=== PATIENT | male | born 1980 | race Caucasian/White ===

== ENCOUNTER 2017-07-25 10:19 | Emergency (ER) | payer SELFPAY ==
[2017-07-25 10:36] VITALS: BP 150/98; PULSE 108; RESP 16; TEMP 37.6; O2SAT 96; BMI 27.1
--- NOTE | 2017-07-25 10:48 | XR_ITS ---
XR chest 2V HISTORY: Cough and congestion ITS.REASON: R/O pneumonia ORDERING PHYSICIAN: Claudy Mack MD PATIENT AGE: 37 years COMPARISON: None available FINDINGS: The cardiomediastinal silhouette and pulmonary vascularity are within normal limits. The lungs are clear without infiltrates, suspicious nodules, or pleural effusions. Lumbar scoliosis convex left No acute bony abnormalities. IMPRESSION: No acute finding
--- NOTE | 2017-07-25 12:44 | HMH.EDURI ---
ED Disposition Clinical Impression: URI (upper respiratory infection) Upper respiratory infection Qualifiers: URI type: unspecified URI Qualified Code(s): J06.9 - Acute upper respiratory infection, unspecified Disposition: Home, Self-Care Condition on Discharge: Good Instructions: DI for Acute Bronchitis Additional Instructions: * Monitor Temp. Tylenol and/or Ibuprofen as needed. ER if fever is no less than 101 despite alternating Tylenol and Ibuprofen * Encourage fluids, water, Gatorade, powerade, pedialyte if /toddler/or child * Warm salt water gargles for throat irritation *Warm fluids *Sore throat lozenges *Sleep elevated *humidifier or vaporizer Lots of rest Increase fluids, water, Gatorade, powerade Take medication as prescribed If symptoms persist follow up with family doctor Return if needed Follow up IMMEDIATELY for new or worsening of symptoms OR no noticeable improvement over the next 48-72 hours. 911 immediately for any life threatening symptoms such as chest pain or difficulty breathing Prescriptions: Albuterol Sulfate [Albuterol HFA Inhaler] 2 puffs IH Q6HP PRN #1 inh PRN Reason: Shortness Of Breath Or Wheezing Ibuprofen [Ibuprofen 800mg Tab] 800 mg PO Q6HP PRN #20 tab PRN Reason: Moderate Pain Azithromycin [Z-Rudy 250mg Tab] 250 mg PO UD DOSE PK #6 tab Benzonatate [Tessalon Perle 100mg Cap] 100 mg PO TID #30 cap predniSONE [Prednisone 20mg Tab] 20 mg PO BID #10 tab Referrals: Maximiliano Diaz MD [Primary Care Provider] - Time of Disposition: 13:14 - Critical Care Critical Care Time: No (Upper respiratory infection non-urgent) Attestation: On 07/25/17, the high probability of a clinically significant, sudden or life threatening deterioration of the following system(s) required my full and direct attention, intervention and personal management. The time I documented below is in addition to time spent performing reported procedures but includes the following listed in this critical care notation. Medical Decision Making - Medical Records Medical records reviewed: Yes: I reviewed the patient's medical records. Vital Signs: 07/25/17 10:36 Temperature 99.6 F Temperature Source Oral Pulse Rate [Left Radial] 108 H Respiratory Rate 16 Blood Pressure [Left Arm] 150/98 Blood Pressure Mean [Left Arm] 115 Blood Pressure Source [Left Arm] Automatic Cuff Blood Pressure Position [Left Arm] Sitting 02 Sat by Pulse Oximetry 96 Oxygen Delivery Method Room Air - Radiology Data #1 Image(s): Chest Image Reviewed: Yes I have reviewed radiologist's interpretation Preliminary Findings: No Infiltrates Seen (Lungs clear without infiltrates, suspicious nodules or pleural effusion, Lumbar scoliosis convex left No acute finding per Dr Hagan official reading) - Giovani Inquiry Pt receiving controlled substance: No Giovani was queried for this patient: No - Reevaluation(s) Time: 13:07 Reevaluation #1: Influenza test, negative result, patient educated on symptoms associated with flu, no distress walking around room URI/Sore Throat HPI - General Chief Complaint: Upper Respiratory Infection Stated Complaint: cough,left side pain Time Seen by Provider: 07/25/17 12:44 Mode of Arrival: Ambulatory Limitations: No Limitations - History of Present Illness HPI Narrative: Patient state that he has been having a cough now for several days that has continued to get worse.State that when he has an episode of coughing he is having pain in left side area like he may have pulled something in his left ribs State that pain is worse when he coughs State that he has been having a low grade fever since yesterday along with throat irritation and sinus drainage - Related Data Previous Rx's Medication Instructions Recorded Albuterol Sulfate [Albuterol HFA 2 puffs IH Q6HP PRN #1 inh 07/25/17 Inhaler] Azithromycin [Z-Rudy 250mg Tab] 250 mg PO UD DOSE PK #6 tab 07/25/17 Benzonatate [Tessalon
--- NOTE | 2017-07-25 12:47 | ED_ITS ---
ED Disposition Clinical Impression: URI (upper respiratory infection) Upper respiratory infection Qualifiers: URI type: unspecified URI Qualified Code(s): J06.9 - Acute upper respiratory infection, unspecified Disposition: Home, Self-Care Condition on Discharge: Good Instructions: DI for Acute Bronchitis Additional Instructions: * Monitor Temp. Tylenol and/or Ibuprofen as needed. ER if fever is no less than 101 despite alternating Tylenol and Ibuprofen * Encourage fluids, water, Gatorade, powerade, pedialyte if /toddler/or child * Warm salt water gargles for throat irritation *Warm fluids *Sore throat lozenges *Sleep elevated *humidifier or vaporizer Lots of rest Increase fluids, water, Gatorade, powerade Take medication as prescribed If symptoms persist follow up with family doctor Return if needed Follow up IMMEDIATELY for new or worsening of symptoms OR no noticeable improvement over the next 48-72 hours. 911 immediately for any life threatening symptoms such as chest pain or difficulty breathing Prescriptions: Albuterol Sulfate [Albuterol HFA Inhaler] 2 puffs IH Q6HP PRN #1 inh PRN Reason: Shortness Of Breath Or Wheezing Ibuprofen [Ibuprofen 800mg Tab] 800 mg PO Q6HP PRN #20 tab PRN Reason: Moderate Pain Azithromycin [Z-Rudy 250mg Tab] 250 mg PO UD DOSE PK #6 tab Benzonatate [Tessalon Perle 100mg Cap] 100 mg PO TID #30 cap predniSONE [Prednisone 20mg Tab] 20 mg PO BID #10 tab Referrals: Maximiliano Diaz MD [Primary Care Provider] - Time of Disposition: 13:14 - Critical Care Critical Care Time: No (Upper respiratory infection non-urgent) Attestation: On 07/25/17, the high probability of a clinically significant, sudden or life threatening deterioration of the following system(s) required my full and direct attention, intervention and personal management. The time I documented below is in addition to time spent performing reported procedures but includes the following listed in this critical care notation. Medical Decision Making - Medical Records Medical records reviewed: Yes: I reviewed the patient's medical records. Vital Signs: 07/25/17 10:36 Temperature 99.6 F Temperature Source Oral Pulse Rate [Left Radial] 108 H Respiratory Rate 16 Blood Pressure [Left Arm] 150/98 Blood Pressure Mean [Left Arm] 115 Blood Pressure Source [Left Arm] Automatic Cuff Blood Pressure Position [Left Arm] Sitting 02 Sat by Pulse Oximetry 96 Oxygen Delivery Method Room Air - Radiology Data #1 Image(s): Chest Image Reviewed: Yes I have reviewed radiologist's interpretation Preliminary Findings: No Infiltrates Seen (Lungs clear without infiltrates, suspicious nodules or pleural effusion, Lumbar scoliosis convex left No acute finding per Dr Hagan official reading) - Giovani Inquiry Pt receiving controlled substance: No Giovani was queried for this patient: No - Reevaluation(s) Time: 13:07 Reevaluation #1: Influenza test, negative result, patient educated on symptoms associated with flu, no distress walking around room URI/Sore Throat HPI - General Chief Complaint: Upper Respiratory Infection Stated Complaint: cough,left side pain Time Seen by Provider: 07/25/17 12:44 Mode of Arrival: Ambulatory Limitations: No Limitations - History of Present Illness HPI Narrative: Patient state that he has been having a cough now for several days that has continued to get worse.State that when
[2017-07-25 13:14] LABS: UTC Influenza A Antigen Negative (Negative); UTC Influenza B Antigen Negative (Negative)
[2017-07-25 13:23] VITALS: BP 124/87; PULSE 87; RESP 14; TEMP 37; O2SAT 98
== END 2017-07-25 13:23 | disposition home or self-care (01) ==
PROVIDERS: Emergency Provider Emergency Medicine; Family Provider Emergency Medicine; PCP Emergency Medicine
DX: J06.9 Acute upper respiratory infection, unspecified (principal)
CPT/HCPCS: 71046; 87804; 99203

== ENCOUNTER 2020-12-21 17:23 | Emergency (ER) | payer BC, SELFPAY ==
[2020-12-21 17:24] VITALS: BP 161/124; PULSE 139; RESP 18; TEMP 36.9; O2SAT 99; BMI 27.1
--- NOTE | 2020-12-21 17:42 | HMH.EDBACK ---
ED Disposition Clinical Impression: Sciatica of right side Lumbar strain Qualifiers: Encounter type: initial encounter Qualified Code(s): S39.012A - Strain of muscle, fascia and tendon of lower back, initial encounter Disposition: Home, Self-Care Condition on Discharge: Good Prescriptions: Gabapentin [Gabapentin 100mg Cap] 100 mg PO Q8H PRN #15 cap PRN Reason: Moderate Pain Transmission Status[id number] methocarbamoL [Methocarbamol 500mg Tablet] 1,000 mg PO Q8H PRN #30 tab PRN Reason: Muscle Pain Transmission Status: [id number] Referrals: Mirta Shahid MD [Primary Care Provider] - - Critical Care Critical Care Time: No Attestation: On 12/21/20, the high probability of a clinically significant, sudden or life threatening deterioration of the following system(s) required my full and direct attention, intervention and personal management. The time I documented below is in addition to time spent performing reported procedures but includes the following listed in this critical care notation. Medical Decision Making - Medical Records Medical records reviewed: Yes: I reviewed the patient's medical records. - Giovani Inquiry Pt receiving controlled substance: No Orders (Tests/Meds): ED MEDICATIONS Generic Name Dose Route Start Last Admin Trade Name Freq PRN Reason Stop Dose Admin Methocarbamol 1,000 mg 12/21/20 21:00 Methocarbamol 500mg Tablet PO 01/20/21 20:59 BID AL Discontinued Medications Generic Name Dose Route Start Last Admin Trade Name Freq PRN Reason Stop Dose Admin Dexamethasone 10 mg 12/21/20 17:36 Dexamethasone 4mg Tablet PO 12/21/20 17:37 ONCE ONE Oxycodone/Acetaminophen 1 each 12/21/20 17:36 Oxycodone 5mg W/Apap 325mg Tablet PO 12/21/20 17:37 ONCE ONE Medical Decision Narrative: No red flag signs or symptoms of back pain. Patient with sciatica. Will treat with Decadron and gabapentin as he has an allergy to ibuprofen. Patient discharged advised to follow-up physical therapy and PCP in 1 week. Return occasions reviewed. No signs of cauda equina. Back Pain HPI - General Stated Complaint: Back pain Time Seen by Provider: 12/21/20 17:40 - History of Present Illness HPI Narrative: 40-year-old male with acute low back pain that radiates down the right leg. Patient reports symptoms started after mowing the lawn yesterday and turning his back the wrong way. Symptoms are constant and worse with ambulation. He is able to ambulate without difficulty, however. Reports taken Tylenol without improvement of symptoms. Denies urinary symptoms, difficulty urinating, saddle anesthesia, lower extremity weakness. No history of cancer. No other event. Denies any fall. - Related Data Home Medications Medication Instructions Recorded Confirmed Lisinopril/Hydrochlorothiazide 1 each PO DAILY 03/02/19 03/02/19 [Lisinopril-Hctz 20-12.5 mg Tab] Previous Rx's Medication Instructions Recorded Hydrocodone/Acetaminophen [[place] 1 tab PO Q4H PRN #10 tab 03/02/19 7.5-325 Tablet] Gabapentin [Gabapentin 100mg Cap] 100 mg PO Q8H PRN #15 cap 12/21/20 methocarbamoL [Methocarbamol 500mg 1,000 mg PO Q8H PRN #30 tab 12/21/20 Tablet] Allergies Allergy/AdvReac Type Severity Reaction Status Date / Time ASA (aspirin) Allergy Intermediate I-HIVES Uncoded 06/06/17 15:25 PCN (penicillin) Allergy Intermediate I-HIVES Uncoded 06/06/17 15:25 [facility] History - Hepatitis A Screen Attestation statement:: This patient has been screened for Hepatitis A risk factors. Medical History: Denies:: Cancer, Diabetes Mellitus Type 1, Diabetes Mellitus Type 2, Internal Pacemaker, MRSA Other Surgeries: No: Pacemaker Amputation: No Fractures: No - Social History Smoking Status: Current every day smoker Tobacco Type: cigarettes # Packs/Day (cigarettes): 1 #Yrs smoked (if former smoker): 20 A
[2020-12-21 17:52] VITALS: BP 161/120; PULSE 120; RESP 20; O2SAT 97
--- NOTE | 2020-12-21 18:00 | PC.NURSE ---
PATIENT STATES THAT HE DOES NOT HAVE A RIDE TO DRIVE HIM HOME SINCE HE WILL BE RECEIVING A NARCOTIC. MD INFORMED AND AWARE OF THIS. MD STATES THAT HE WILL NEED TO WAIT AND OBSERVED FOR ONE HOUR BEFORE BEING DISCHARGED. MEDICATION ADMINISTERED TO PATIENT WITH HIS UNDERSTANDING THAT HE NEEDS TO WAIT AND BE OBSERVED FOR AN HOUR. PATIENT COMPLIANT AT THIS TIME.
[2020-12-21 19:07] VITALS: BP 135/78; PULSE 87; RESP 20; TEMP 36.9; O2SAT 99
== END 2020-12-21 19:15 | disposition home or self-care (01) ==
PROVIDERS: Emergency Provider Emergency Medicine; PCP Family Medicine
DX: S39.012A Strain of muscle, fascia and tendon of lower back, initial encounter (principal); M54.31 Sciatica, right side; F17.210 Nicotine dependence, cigarettes, uncomplicated
CPT/HCPCS: 99281

== ENCOUNTER 2021-03-21 19:11 | Emergency (ER) | payer BC, SELFPAY ==
[2021-03-21 19:13] VITALS: BP 155/102; PULSE 104; RESP 22; TEMP 36.8; O2SAT 96; BMI 27.8
--- NOTE | 2021-03-21 19:23 | HMH.EDGENADL ---
ED Disposition Clinical Impression: Lumbar disc herniation, Lumbar radiculopathy Disposition: Home, Self-Care Condition on Discharge: Good Instructions: DI for Low Back Pain, DI for Back Pain With Sciatica Additional Instructions: Return to the emergency department with any new, changing, or worsening symptoms. Return with difficulty with bowel or bladder function. Return with numbness in your groin or leg weakness. Return with any fevers. Please follow-up with your primary care physician. You will likely benefit with a referral from your PCP for physical therapy. Prescriptions: methocarbamoL [Methocarbamol 500mg Tablet] 500 mg PO TID 14 Days #42 tab Prescription Printed Referrals: Mirta Shahid MD [Primary Care Provider] - Time of Disposition: 19:35 - Critical Care Critical Care Time: No Attestation: On , the high probability of a clinically significant, sudden or life threatening deterioration of the following system(s) required my full and direct attention, intervention and personal management. The time I documented below is in addition to time spent performing reported procedures but includes the following listed in this critical care notation. Medical Decision Making - Medical Records Medical records reviewed: Yes: I reviewed the patient's medical records. - Giovani Inquiry Pt receiving controlled substance: No Vital Signs: 03/21/21 19:13 Temperature 98.3 F Temperature Source Oral Pulse Rate [Right] 104 H Respiratory Rate 22 Blood Pressure [Right Arm] 155/102 H Blood Pressure Mean [Right Arm] 119 Blood Pressure Source [Right Arm] Automatic Cuff 02 Sat by Pulse Oximetry 96 Oxygen Delivery Method Room Air Orders (Tests/Meds): ED MEDICATIONS Generic Name Dose Route Start Last Admin Trade Name Freq PRN Reason Stop Dose Admin Methocarbamol 1,000 mg 03/21/21 21:00 03/21/21 20:02 Methocarbamol 500mg Tablet PO 04/20/21 20:59 Not Given BID AL Oxycodone HCl 10 mg 03/21/21 19:23 03/21/21 19:42 Oxycodone 5mg Immediate Release Tablet PO 04/20/21 19:22 10 mg Q6HP PRN Administration Severe Pain Discontinued Medications Generic Name Dose Route Start Last Admin Trade Name Freq PRN Reason Stop Dose Admin Acetaminophen 1,000 mg 03/21/21 19:23 03/21/21 19:42 Acetaminophen 500mg Tab PO 03/21/21 19:24 1,000 mg ONCE ONE Administration Medical Decision Narrative: Patient is hemodynamically stable arrival nontoxic in appearance. Differential includes was not limited to disc herniation, lumbosacral strain, sciatica, cord compression, other. I have low suspicion for cord compression this patient. He does not have any incontinence, difficulty with urination or bowel or bladder function. No saddle anesthesia. No leg weakness. His last spine injections were in 2008. He has no history of IV drug use. Patient's neurological exam is reassuring. He has good strength and reflexes in bilateral lower extremities. I do not believe we need to obtain any imaging in this patient at this time. Patient was given oxycodone, Robaxin, Tylenol for his symptoms. He already took ibuprofen at home so we cannot give him Toradol here. His symptoms have improved a moderate amount after the medications have been given. He was given another dose of oxycodone prior to being discharged home. I will also discharge him with a prescription of Robaxin. I believe the patient needs to see his primary doctor this week and get referred for physical therapy as I believe he will benefit from this. I counseled the patient on close return precautions told to return immediately if he has any worsening pain, leg weakness, incontinence, fevers, numbness in his groin. He agreed to return with any of these symptoms or any other concerning symptoms. General Adult HPI - General Stated complaint: feels like slipped discs in lower back Time Seen by Provider: 03/21/21 19:25 - History of Pre
[2021-03-21 20:32] VITALS: BP 157/94; PULSE 100; RESP 20; TEMP 36.8; O2SAT 96
== END 2021-03-21 20:34 | disposition home or self-care (01) ==
PROVIDERS: Emergency Provider Emergency Medicine; PCP Family Medicine
DX: M51.26 Other intervertebral disc displacement, lumbar region (principal); M54.16 Radiculopathy, lumbar region; F17.210 Nicotine dependence, cigarettes, uncomplicated; Z88.0 Allergy status to penicillin
CPT/HCPCS: 99281

== ENCOUNTER 2021-06-06 11:47 | Emergency (ER) | payer BC, SELFPAY ==
[2021-06-06 11:56] VITALS: BP 142/99; PULSE 119; RESP 16; TEMP 37.1; O2SAT 97; BMI 27.1
--- NOTE | 2021-06-06 12:27 | XR_ITS ---
PROCEDURE INFORMATION: Exam: XR Right Hand Exam date and time: 06/06/2021 12:27 PM Age: 41 years old Clinical indication: Injury or trauma; Other: Animal bite; Hand; Right; Injury date: 06/06/21 TECHNIQUE: Imaging protocol: XR Right hand. Views: 1 or 2 views. COMPARISON: No relevant prior studies available. FINDINGS: Bones/joints: Normal. Soft tissues: Normal. IMPRESSION: No acute findings.
--- NOTE | 2021-06-06 12:27 | PC.NURSE ---
Animal bite form faxed to health dept at this time
--- NOTE | 2021-06-06 12:29 | HMH.EDGENADL ---
ED Disposition Clinical Impression: Cat bite of right hand Qualifiers: Encounter type: initial encounter Qualified Code(s): S61.451A - Open bite of right hand, initial encounter Cellulitis Qualifiers: Site of cellulitis: extremity Site of cellulitis of extremity: finger Laterality: right Qualified Code(s): L03.011 - Cellulitis of right finger Disposition: Home, Self-Care Condition on Discharge: Fair Instructions: DI for Cat Bite Additional Instructions: Elevate your hand. Take Augmentin as prescribed. [place] as needed for pain. Follow-up with your primary care doctor within 2 to 3 days for recheck. Return to the emergency department if worsening pain, inability to move your finger, increased swelling, increased redness, red streaks going up hand/arm, fever, pus drainage. Additional instructions for CONTROLLED SUBSTANCES: You have been prescribed a medication that is a controlled substance. Controlled substances include pain medications known as opiates and sedative nerve medications known as benzodiazepines. Tramadol, fioricet, and gabapentin are also controlled substances. Some common opiates include: Codeine (such as Tylenol #3) Hydrocodone (Vicodin, Lortab, Lorcet, Graford) Oxycodone (Percocet, Percodan, Oxycodone, Oxy IR) Some common benzodiazepines include: Diazepam (Valium) Lorazepam (Ativan) Alprazolam (Xanax) Clonazepam (Klonopin) Oxazepam (Serax) All of these controlled substances are highly addictive and frequently abused. Misuse can and frequently does lead to addiction as well as overdose and . Medication should be stored in a locked cabinet or other secure storage unit. Do not store the medication in a motor vehicle. Short term supplies, 3 days or less, are prescribed because of the highly addictive nature of the medication. Any of the controlled substance medication NOT taken should be disposed of properly and NOT SAVED. The recommended method of disposing of unused medications is: Place the medicines in a sealable plastic bag. If the medicine is a solid, crush it or add water to dissolve it. Add something undesirable (cat litter, coffee grounds, etc.) Dispose of sealed bag in household trash Do not flush or pour unused medicines down a sink or drain. Controlled substances should not be shared, given away or sold. Because of the addictive nature and frequent abuse, these medications are sometimes stolen. These medications should be kept in a safe place where they cannot be stolen. Do not keep them in your car or purse. Lost or stolen prescriptions for controlled substances WILL NOT BE REFILLED in this emergency department, regardless of whether a police report was filed. Prescriptions: Hydrocod/Acet 5/325 mg [[place] 5/325mg tablet] 1 tab PO Q6HP PRN #10 tab PRN Reason: Pain Transmission Status: Received by [id number] Hydrocod/Acet 5/325 mg [[place] 5/325mg tablet] 1 tab PO Q6HP PRN #10 tab PRN Reason: Pain Transmission Status: Received by [id number] Amoxicillin/Potassium Clav [Augmentin 875-125 Tablet] 1 tab PO Q12H #20 tab Transmission Status: Received by [id number] Referrals: Mirta Shahid MD [Primary Care Provider] - Forms: Work/School Release - Critical Care Critical Care Time: No Attestation: On 06/06/21, the high probability of a clinically significant, sudden or life threatening deterioration of the following system(s) required my full and direct attention, intervention and personal management. The time I documented below is in addition to time spent performing reported procedures but includes the following listed in this critical care notation. Medical Decision Making - Giovani Inquiry Pt receiving controlled substance: Yes Giovani was queried for this patient: Yes Risks and benefits of using a controlled substance: were discussed with pt by me Vital Signs: 06/06/21 11:56 06/06/21 13:35 Temperature
[2021-06-06 12:47] LABS: Basophils # 0.1 K/mm3 (0-0.2); Basophils % 0.8 % (0.1-2.0); Eosinophils # 0.1 K/mm3 (0.0-0.4); Eosinophils % 1.3 % (0.1-12.0); Hematocrit 49.4 % (42.0-52.0); Hemoglobin 16.3 g/dL (14.1-18.0); Lymphocytes # 2.4 K/mm3 (0.7-4.5); Lymphocytes % 25.6 % (10-50); Mean Corpuscular Hemoglobin 31.6 pg (27.0-31.2); Mean Corpuscular Volume 95.6 fl (80-94); Mean Platelet Volume 8.2 fl (7.4-10.4); Monocytes # 0.4 K/mm3 (0.1-1.0); Monocytes % 4.2 % (1.7-9.3); Neutrophils # 6.4 K/mm3 (1.8-7.8); Neutrophils % 68.1 % (37.0-80.0); Platelet Count 165 K/mm3 (142-424); Red Blood Count 5.17 M/mm3 (4.60-6.20); Red Cell Distribution Width 13.4 % (11.5-17.5); White Blood Count 9.3 K/mm3 (4.8-10.8)
[2021-06-06 12:56] LABS: Potassium 3.8 mmoL/L (3.5-5.1); Sodium 142 mmol/L (136-145)
--- NOTE | 2021-06-06 12:57 | PC.NURSE ---
pt states he is able to take nsaids. pt states he is only sensitive to aspirin
[2021-06-06 12:59] LABS: Albumin/Globulin Ratio 1.4 (1.1-1.8); Blood Urea Nitrogen 10 mg/dl (9-20); Creatinine Clearance Estimated 174 mL/min (50-200); Estimated Glomerular Filt Rate 124 ml/min (>60); GFR (African American) 150 ML/MIN (>60); Globulin 3.5 g/dL (1.3-3.2); Total Protein,Serum 8.5 g/dl (6.3-8.2)
[2021-06-06 13:00] LABS: Calcium 9.7 mg/dl (8.4-10.2); Glucose 116 mg/dl (74-100)
[2021-06-06 13:04] LABS: Chloride 102 mmol/L (98-107)
[2021-06-06 13:07] LABS: Alanine Aminotransferase 145 U/L (12-78); Alkaline Phosphatase 74 U/L (38-126); Aspartate Amino Transferase 108 U/L (17-59); Bilirubin,Total 0.4 mg/dl (0.2-1.3)
[2021-06-06 13:08] LABS: Anion Gap 16.8 mEq/L (5-15); Carbon Dioxide 27 mmol/L (22.0-30.0)
--- NOTE | 2021-06-06 13:20 | PC.NURSE ---
keshav to call me back for report
[2021-06-06 13:35] VITALS: BP 138/90; PULSE 104; RESP 16; TEMP 37.1; O2SAT 98
== END 2021-06-06 13:57 | disposition home or self-care (01) ==
PROVIDERS: Emergency Provider Emergency Medicine; PCP Family Medicine
DX: S61.451A Open bite of right hand, initial encounter (principal); L03.011 Cellulitis of right finger; W55.01XA Bitten by cat, initial encounter; Y92.019 Unspecified place in single-family (private) house as the place of occurrence of the external cause; F17.210 Nicotine dependence, cigarettes, uncomplicated
CPT/HCPCS: 73120; 80053; 85025; 96365; 96375; 99282

== ENCOUNTER 2021-07-06 17:25 | Emergency (ER) | payer BC, SELFPAY ==
--- NOTE | 2021-07-06 18:20 | PC.NURSE ---
pt stated they did not want to wait to been seen in ed. pt states they will see pc tomorrow.
[2021-07-06 18:21] VITALS: BP 0/0; PULSE 0; RESP 0; TEMP -17.7; TEMP 0; O2SAT 0
== END 2021-07-06 18:22 | disposition left against medical advice (07) ==
PROVIDERS: Emergency Provider Emergency Medicine; PCP Family Medicine
DX: Z53.21 Procedure and treatment not carried out due to patient leaving prior to being seen by health care provider (principal)
CPT/HCPCS: 99211

== ENCOUNTER → 2022-02-04 10:08 | Outpatient (CLI) | payer OTHER, SELFPAY ==
[2022-02-06 10:08] LABS: Hepatitis C Antibody <0.1 s/co ratio (0.0-0.9)
== END ==
PROVIDERS: PCP Emergency Medicine; Visit Provider Emergency Medicine
DX: Z83.1 Family history of other infectious and parasitic diseases (principal); Z86.19 Personal history of other infectious and parasitic diseases
CPT/HCPCS: 87380; 87522

== ENCOUNTER → 2022-05-06 17:21 | Outpatient (CLI) | payer OTHER, SELFPAY ==
[2022-05-06 17:41] LABS: Basophils # 0.1 K/mm3 (0-0.2); Basophils % 0.7 % (0.1-2.0); Eosinophils # 0.1 K/mm3 (0.0-0.4); Eosinophils % 1.8 % (0.1-12.0); Hematocrit 46.6 % (42.0-52.0); Hemoglobin 14.8 g/dL (14.1-18.0); Lymphocytes # 2.4 K/mm3 (0.7-4.5); Lymphocytes % 32.9 % (10-50); Mean Corpuscular HGB Conc 31.7 g/dL (31.8-35.4); Mean Corpuscular Hemoglobin 30.6 pg (27.0-31.2); Mean Corpuscular Volume 96.6 fl (80-94); Mean Platelet Volume 9.1 fl (7.4-10.4); Monocytes # 0.4 K/mm3 (0.1-1.0); Monocytes % 5.3 % (1.7-9.3); Neutrophils # 4.3 K/mm3 (1.8-7.8); Neutrophils % 59.3 % (37.0-80.0); Platelet Count 169 K/mm3 (142-424); Red Blood Count 4.82 M/mm3 (4.60-6.20); Red Cell Distribution Width 13.3 % (11.5-17.5); White Blood Count 7.2 K/mm3 (4.8-10.8)
[2022-05-06 17:42] LABS: Alanine Aminotransferase 37 U/L (12-78); Albumin Level 5.2 g/dl (3.5-5.0); Albumin/Globulin Ratio 1.8 (1.1-1.8); Alkaline Phosphatase 85 U/L (38-126); Anion Gap 20.9 mEq/L (5-15); Aspartate Amino Transferase 45 U/L (17-59); Bilirubin,Total 0.4 mg/dl (0.2-1.3); Blood Urea Nitrogen 18 mg/dl (9-20); Carbon Dioxide 26 mmol/L (22.0-30.0); Chloride 100 mmol/L (98-107); Chol/HDL Ratio 3.1 (1-3.5); Cholesterol 269 mg/dl (140-200); Estimated Glomerular Filt Rate 93 ml/min (>60); GFR (African American) 113 ML/MIN (>60); Globulin 2.9 g/dL (1.3-3.2); Glucose 116 mg/dl (74-100); HDL Cholesterol 87 mg/dl (40-60); Potassium 3.9 mmoL/L (3.5-5.1); Sodium 143 mmol/L (136-145); Total Protein,Serum 8.1 g/dl (6.3-8.2); Triglycerides 46 mg/dl (30-150); VLDL Cholesterol 9 mg/dL (0-40)
[2022-05-06 17:53] LABS: Direct LDL Cholesterol 149.36 mg/dL (100-129)
[2022-05-06 17:56] LABS: Free T4 (Free Thyroxine) 1.12 ng/dl (0.78-2.19)
[2022-05-06 17:57] LABS: 25-OH Vitamin D, Total 29.6 ng/mL (30-100)
[2022-05-06 18:12] LABS: Thyroid Stimulating Hormone 1.69 uIU/mL (0.465-4.68)
== END ==
PROVIDERS: PCP Emergency Medicine; Visit Provider Emergency Medicine
DX: E66.3 Overweight (principal); E55.9 Vitamin D deficiency, unspecified; Z00.00 Encounter for general adult medical examination without abnormal findings
CPT/HCPCS: 80053; 80061; 82306; 84439; 84443; 85025

== ENCOUNTER → 2022-05-20 07:34 | Outpatient (CLI) | payer OTHER, SELFPAY ==
--- NOTE | 2022-05-20 07:36 | MR_ITS ---
FINAL REPORT CLINICAL HISTORY: back pain. Low back pain. right sided back pain. right leg pain. no injury or trauma. FINDINGS: Multiplanar MR imaging of the lumbar spine was performed without contrast. On the sagittal T2-weighted images, there is abnormal decreased signal in the L4-L5 disc. There is mild loss of height of the L4-L5 disc. The vertebrae are of normal height. The vertebral alignment is normal. T12-L1: There is no significant canal stenosis or neural foraminal narrowing. L1-2: There is no significant canal stenosis or neural foraminal narrowing. L2-3: There is no significant canal stenosis or neural foraminal narrowing. L3-4: There is a mild diffuse disc bulge with mild bilateral neural foraminal narrowing. L4-5: There is a moderate diffuse disc bulge with [id number] bilateral neural foraminal narrowing. L5-S1: There is no significant canal stenosis or neural foraminal narrowing. IMPRESSION: Disc bulges at L3-L4 and L4-L5 with bilateral neural foraminal narrowing most evident at L4-L5. Reviewed, Interpreted and Dictated by Clifford Solano MD Transcribed by Jb Saldana Authenticated and [facility]
== END ==
PROVIDERS: PCP Emergency Medicine; Visit Provider Emergency Medicine
DX: M54.9 Dorsalgia, unspecified (principal); M54.50 Low back pain, unspecified
CPT/HCPCS: 72148; 76376

== ENCOUNTER → 2022-07-29 14:25 | Outpatient (CLI) | payer OTHER, SELFPAY ==
[2022-07-29 15:31] LABS: Amphetamine/Metha Screen,Urine Negative ng/ml (<1000); Barbiturates Screen,Urine Negative ng/ml (<200); Benzodiazepines Screen,Urine Negative ng/ml (<200); Cannabinoid Screen,Urine Negative ng/ml (<50); Cocaine Screen,Urine Negative ng/ml (<300); Methadone Screen,Urine Negative ng/ml (<300); Opiate Screen,Urine Negative ng/ml (<300); Phencyclidine Screen,Urine Negative ng/ml (<25)
== END ==
PROVIDERS: PCP Emergency Medicine; Visit Provider Emergency Medicine
DX: M48.061 Spinal stenosis, lumbar region without neurogenic claudication (principal)
CPT/HCPCS: 80305

== ENCOUNTER → 2022-12-03 09:45 | Outpatient (CLI) | payer OTHER, SELFPAY ==
[2022-12-02 18:45] LABS: Amphetamine/Metha Screen,Urine Negative ng/ml (<1000)
[2022-12-02 18:46] LABS: Barbiturates Screen,Urine Negative ng/ml (<200)
[2022-12-02 18:47] LABS: Benzodiazepines Screen,Urine Negative ng/ml (<200)
[2022-12-02 18:48] LABS: Cannabinoid Screen,Urine Negative ng/ml (<50); Cocaine Screen,Urine Negative ng/ml (<300)
[2022-12-02 18:49] LABS: Methadone Screen,Urine Negative ng/ml (<300); Opiate Screen,Urine Negative ng/ml (<300)
[2022-12-02 18:50] LABS: Phencyclidine Screen,Urine Negative ng/ml (<25)
== END ==
PROVIDERS: PCP Emergency Medicine; Visit Provider Emergency Medicine
DX: Z79.899 Other long term (current) drug therapy (principal)
CPT/HCPCS: 80305

== ENCOUNTER → 2022-12-13 11:57 | Outpatient (CLI) | payer OTHER, SELFPAY ==
--- NOTE | 2022-12-13 12:03 | XR_ITS ---
FINAL REPORT CLINICAL HISTORY: pain dorsum right foot FINDINGS: 3 views of the right foot were obtained. There is a comminuted nondisplaced fracture of the distal second metatarsal the joint spaces are intact. The soft tissues are unremarkable. IMPRESSION: Comminuted nondisplaced fracture of the distal second metatarsal. Reviewed, Interpreted and Dictated by Jesus Zavala III, MD Transcribed by Jb Saldana Authenticated and [facility]
== END ==
PROVIDERS: PCP Family Medicine; Visit Provider Family Medicine
DX: M79.671 Pain in right foot (principal)
CPT/HCPCS: 73630

== ENCOUNTER 2023-04-08 15:11 | Emergency (ER) | payer OTHER, SELFPAY ==
[2023-04-08 15:21] VITALS: BP 152/98; PULSE 85; RESP 22; O2SAT 97; BMI 26.2
--- NOTE | 2023-04-08 15:22 | XR_ITS ---
PROCEDURE INFORMATION: Exam: XR Chest Exam date and time: 04/08/2023 3:18 PM Age: 42 years old Clinical indication: Other: Covid; Additional info: Covid, hemoptysis TECHNIQUE: Imaging protocol: Radiologic exam of the chest. Views: 2 views. COMPARISON: CR [id number] XR chest portable 02/10/2018 12:37 PM FINDINGS: Lungs: Unremarkable. No consolidation. Pleural spaces: Unremarkable. No pleural effusion. No pneumothorax. Heart/Mediastinum: Unremarkable. No cardiomegaly. Bones/joints: Unremarkable. IMPRESSION: No acute findings.
--- NOTE | 2023-04-08 15:24 | HMH.EDGENADL ---
Discharge Plan Disposition Patient Disposition: Home, Self-Care Chief Complaint: Shortness of Breath/Dyspnea Prescriptions Prescriptions: New pkpvcvqccdapzms-bluqovuyw-ST [Bromfed DM] 2-30-10 mg/5 mL syrup 5 ml PO Q6H PRN (Reason: cold symptoms) Qty: 118 0RF No Action ergocalciferol (vitamin D2) 1,250 mcg (50,000 unit) capsule 1,250 mcg PO WEEKLY Qty: 14 3RF atorvastatin [Lipitor] 10 mg tablet 10 mg PO HS Qty: 90 3RF amlodipine [Norvasc] 10 mg tablet 10 mg PO DAILY Qty: 90 3RF lidocaine 5 % adhesive patch,medicated 1 patch topical DAILY Qty: 30 0RF Rx Instructions: leave on most painful area for up to 12 hrs diclofenac sodium 1 % gel 2 g topical QID Qty: 100 0RF Rx Instructions: apply to single elbow, wrist or hand; for hand includes palm/fingers/back of hand bupropion HCl [Wellbutrin XL] 150 mg tablet extended release 24 hr 150 mg PO DAILY Qty: 90 3RF nicotine 7 mg/24 hr patch 24 hour 1 patch transdermal DAILY Qty: 14 1RF lisinopril-hydrochlorothiazide 20-12.5 mg tablet See Rx Instructions .ROUTE .COMPLEX Qty: 90 2RF Dose Instruction: TAKE 1 TABLET BY MOUTH DAILY Rx Instructions: TAKE 1 TABLET BY MOUTH DAILY nicotine 14 mg/24 hr patch 24 hour 1 patch transdermal Q24H Qty: 28 0RF Referrals Follow up/Referrals: Kem Prado MD [Primary Care Provider] - See instructions Activity Restrictions/Add. Instructions Additional Instructions/Restrictions: If new or worsening symptoms please immediately return to the emergency department. If you wish to return to receive your CT to rule out possible blood clot in your chest please return to the emergency department. If you do not wish to return the emergency department and your symptoms persist please follow-up with your family doctor for continued evaluation as soon as you are able. Please take your medication as prescribed. Clinical Impressions Clinical Impression: COVID-19, Hemoptysis Discharge ED Provider: Noe Naqvi General Adult HPI General Chief complaint: Shortness of Breath/Dyspnea Stated complaint: covid + coughing up blood Time Seen by Provider: 04/08/23 15:17 History of Present Illness HPI narrative: Patient is a 42-year-old male with past medical history of multi pack-year smoker, not currently smoking, hypertension, recently diagnosed COVID who presents emergency department for cough, shortness of breath, lung pain . Over the last few days patient has developed the symptoms, outpatient physician put him on Paxlovid for which he took his first dose today. Due to persistent symptoms he presents here for continued evaluation. Related Data Previous Rx's Medication Instructions Recorded diclofenac sodium 1 % topical gel 2 g topical QID #100 grams 07/29/22 lidocaine 5 % topical patch 1 patch topical DAILY #30 ea 07/29/22 lisinopril 20 See Rx Instructions .Route 11/04/22 mg-hydrochlorothiazide 12.5 mg .COMPLEX hypertension #90 tabs tablet atorvastatin 10 mg tablet (Lipitor) 10 mg PO HS #90 tabs 12/02/22 ergocalciferol (vitamin D2) 1,250 1,250 mcg PO WEEKLY #14 caps 12/02/22 mcg (50,000 unit) capsule amlodipine 10 mg tablet (Norvasc) 10 mg PO DAILY #90 tabs 12/12/22 bupropion HCl 150 mg 24 hr tablet, 150 mg PO DAILY #90 tabs 12/22/22 extended release (Wellbutrin XL) nicotine 14 mg/24 hr daily 1 patch transdermal Q24H #28 ea 03/02/23 transdermal patch nicotine 7 mg/24 hr daily 1 patch transdermal DAILY #14 ea 03/16/23 transdermal patch efdzpazbxqjgozm-tntdqzfvmgreteq-ND 5 ml PO Q6H PRN cold symptoms #118 04/08/23 2 mg-30 mg-10 mg/5 mL oral syrup mL (Bromfed DM) Allergies Allergy/AdvReac Type Severity Reaction Status Date / Time ASA (aspirin) Allergy Intermediate I-HIVES Uncoded 12/22/22 09:35 [facility] Disclaimer: The information contained in this section may have been updated after the patient was seen, as this information can be updated by other us
[2023-04-08 15:28] VITALS: TEMP 36.7
--- NOTE | 2023-04-08 15:46 | ECG_ITS ---
APPROVED REPORT Exam: Resting ECG HR:78 bpm ECG Measurements Heart Rate 78 AXES TN 164 P 43 QRSd 130 QRS 68 QT 392 T 29 QTc 425 Conclusion SINUS RHYTHM MODERATE INTRAVENTRICULAR CONDUCTION DELAY [110+ ms QRS DURATION] BORDERLINE ECG UNCONFIRMED REPORT Electronically signed by : Jerson Mason MD 04/10/2023 08:33:46
[2023-04-08 15:54] LABS: Influenza A, PCR Not Detected (NotDetected); Influenza B, PCR Not Detected (NotDetected)
--- NOTE | 2023-04-08 16:09 | PC.NURSE ---
Notified RT of breathing treatment
[2023-04-08 16:12] LABS: Basophils % 0.8 % (0.1-2.0); Eosinophils # 0.1 K/mm3 (0.0-0.4); Eosinophils % 1.5 % (0.1-12.0); Hemoglobin 14.6 g/dL (14.1-18.0); Lymphocytes # 1.7 K/mm3 (0.7-4.5); Lymphocytes % 35.9 % (10-50); Mean Corpuscular Volume 91.4 fl (80-94); Mean Platelet Volume 7.4 fl (7.4-10.4); Monocytes # 0.3 K/mm3 (0.1-1.0); Monocytes % 6.9 % (1.7-9.3); Neutrophils # 2.6 K/mm3 (1.8-7.8); Neutrophils % 54.8 % (37.0-80.0); Platelet Count 123 K/mm3 (142-424); Red Cell Distribution Width 14.9 % (11.5-17.5); White Blood Count 4.7 K/mm3 (4.8-10.8)
[2023-04-08 16:17] LABS: INR 0.95 (0.9-1.1); Prothrombin Time 10.3 seconds (10.1-12.5)
[2023-04-08 16:19] LABS: Alanine Aminotransferase 61 U/L (12-78); Albumin Level 5.1 g/dl (3.5-5.0); Albumin/Globulin Ratio 1.5 (1.1-1.8); Alkaline Phosphatase 65 U/L (38-126); Anion Gap 17.9 mEq/L (5-15); Aspartate Amino Transferase 78 U/L (17-59); Bilirubin,Total 0.3 mg/dl (0.2-1.3); Blood Urea Nitrogen 10 mg/dl (9-20); Calcium 9.3 mg/dl (8.4-10.2); Carbon Dioxide 27 mmol/L (22.0-30.0); Chloride 97 mmol/L (98-107); Creatinine Clearance Estimated 193 mL/min (50-200); Estimated Glomerular Filt Rate 148 ml/min (>60); GFR (African American) 179 ML/MIN (>60); Globulin 3.5 g/dL (1.3-3.2); Glucose 90 mg/dl (74-100); Potassium 3.9 mmoL/L (3.5-5.1); Sodium 138 mmol/L (136-145); Total Protein,Serum 8.6 g/dl (6.3-8.2)
--- NOTE | 2023-04-08 16:22 | PC.NURSE ---
RT at BS at this time; no other needs.
[2023-04-08 16:24] LABS: D-Dimer 0.81 ug/mL (0.0-0.5)
[2023-04-08 16:30] LABS: Coronavirus 19, PCR Detected (NotDetected)
[2023-04-08 16:33] LABS: Troponin I < 0.01 ng/ml (0.00-0.034)
--- NOTE | 2023-04-08 16:36 | PC.NURSE ---
Pt visitor stepped out of room and advised Dr. Naqvi If you aren't going to keep him we needs to go home because i can't drive after dark. Dr. Naqvi informed visitor that we are waiting on scans at this time, and are unsure if he will be admitted or not at this time.
[2023-04-08 16:44] VITALS: PULSE 81
[2023-04-08 16:45] VITALS: BP 122/73; PULSE 83; PULSE 85; RESP 20; TEMP 36.9; O2SAT 97
== END 2023-04-08 16:55 | disposition home or self-care (01) ==
PROVIDERS: Emergency Provider Emergency Medicine; PCP Family Medicine
DX: U07.1 COVID-19 (principal); R04.2 Hemoptysis; I10 Essential (primary) hypertension; Z87.891 Personal history of nicotine dependence
CPT/HCPCS: 71046; 80053; 84484; 85025; 85378; 85610; 87636; 93005; 96374; 99284

== ENCOUNTER 2024-06-03 10:00 | Outpatient (CLI) | payer OTHER, SELFPAY ==
[2024-06-03 18:03] LABS: Basophils # 0.1 K/mm3 (0-0.2); Basophils % 0.6 % (0.1-2.0); Eosinophils # 0.1 K/mm3 (0.0-0.4); Eosinophils % 0.9 % (0.1-12.0); Hematocrit 49.2 % (42.0-52.0); Hemoglobin 16.1 g/dL (14.1-18.0); Lymphocytes # 2.4 K/mm3 (0.7-4.5); Lymphocytes % 21.5 % (10-50); Mean Corpuscular HGB Conc 32.7 g/dL (31.8-35.4); Mean Corpuscular Hemoglobin 31.3 pg (27.0-31.2); Mean Corpuscular Volume 95.9 fl (80-94); Mean Platelet Volume 8.5 fl (7.4-10.4); Monocytes # 0.7 K/mm3 (0.1-1.0); Monocytes % 6.6 % (1.7-9.3); Neutrophils # 7.9 K/mm3 (1.8-7.8); Neutrophils % 70.3 % (37.0-80.0); Platelet Count 189 K/mm3 (142-424); Red Blood Count 5.13 M/mm3 (4.60-6.20); Red Cell Distribution Width 13.8 % (11.5-17.5); White Blood Count 11.2 K/mm3 (4.8-10.8)
[2024-06-03 18:35] LABS: Alanine Aminotransferase 114 U/L (12-78); Albumin/Globulin Ratio 1.6 (1.1-1.8); Alkaline Phosphatase 87 U/L (38-126); Anion Gap 14.8 mEq/L (5-15); Aspartate Amino Transferase 89 U/L (17-59); Bilirubin,Total 0.7 mg/dl (0.2-1.3); Blood Urea Nitrogen 12 mg/dl (9-20); Calcium 10.1 mg/dl (8.4-10.2); Carbon Dioxide 28 mmol/L (22.0-30.0); Chloride 104 mmol/L (98-107); Chol/HDL Ratio 3.2 (1-3.5); Cholesterol 290 mg/dl (140-200); Estimated Glomerular Filt Rate 105 ml/min (>60); GFR (African American) 127 ML/MIN (>60); Globulin 3.1 g/dL (1.3-3.2); Glucose 116 mg/dl (74-100); HDL Cholesterol 92 mg/dl (40-60); Potassium 4.8 mmoL/L (3.5-5.1); Sodium 142 mmol/L (136-145); Total Protein,Serum 8.1 g/dl (6.3-8.2); Triglycerides 132 mg/dl (30-150); VLDL Cholesterol 26 mg/dL (0-40)
[2024-06-03 18:46] LABS: Direct LDL Cholesterol 193.68 mg/dL (100-129)
== END 2024-06-03 23:59 | disposition home or self-care (01) ==
LOC: LAB.DROPOF 06-04 12:38
PROVIDERS: PCP Family Medicine; Visit Provider Family Medicine
DX: R04.2 Hemoptysis (principal); I10 Essential (primary) hypertension; Z00.00 Encounter for general adult medical examination without abnormal findings
CPT/HCPCS: 80053; 80061; 85025

== ENCOUNTER 2024-07-29 09:40 | Outpatient (CLI) | payer OTHER, SELFPAY ==
--- NOTE | 2024-07-29 09:41 | MR_ITS ---
FINAL REPORT TECHNIQUE: Multiplanar MR, without and with gadolinium enhancement CLINICAL HISTORY: hnp, Disc disease and worsening pain COMPARISON: 05/20/2022 FINDINGS: Sagittal images show normal vertebral height. There is mild S-shaped scoliosis without evidence of subluxation. No mass or abnormal enhancement is identified. Marrow signal pattern is unremarkable. L1-2: There is no evidence of central canal stenosis or neural foraminal narrowing. L2-3: There is no evidence of central canal stenosis or neural foraminal narrowing. L3-4: A mild annular bulge is present with moderate facet arthropathy, borderline central canal stenosis, and mild neural foraminal narrowing. L4-5: A mild annular bulge is present with facet arthropathy. No evidence of central canal stenosis or neural foraminal narrowing is present. L5-S1: There is no evidence of central canal stenosis or neural foraminal narrowing. IMPRESSION: Minimal degenerative change of the lower lumbar spine most prominent at the L3-4 level. No evidence of mass or abnormal enhancement. Reviewed, Interpreted and Dictated by Gracie Roldan MD Transcribed by Shikha Hurd Authenticated and [facility]
[2024-07-29 10:04] LABS: Blood Urea Nitrogen 16 mg/dl (9-20); Estimated Glomerular Filt Rate 105 ml/min (>60); GFR (African American) 127 ML/MIN (>60)
[2024-07-29] MEDS: SODIUM CHLORIDE 0.9% 10ML SYR (RAD ONLY) 10 ML IV (10:36)
[2024-07-29] MEDS: GADOTERIDOL INJ 20ML SYRINGE 20 ML IV (10:36)
== END 2024-07-29 23:59 | disposition home or self-care (01) ==
LOC: RAD 09:41
PROVIDERS: PCP Family Medicine; Visit Provider Family Medicine
DX: M51.369 Other intervertebral disc degeneration, lumbar region without mention of lumbar back pain or lower extremity pain (principal)
CPT/HCPCS: 36415; 72158; 82565; 84520; A9576